=== PATIENT | female | born 1950 | race African-American/Black ===

== ENCOUNTER 2018-02-05 02:21 | Emergency (ER) | payer OTHER ==
[~2018-02-05] VITALS: Ht 162.6 cm; Wt 87.1 kg
[~2018-02-05 02:21] MED LIST: Cipro PO; ENALAPRIL MALEA20 MG; LEVSIN/SL0.125 MG SL; LEVSIN0.125 MG PO; METRONIDAZOLE500 MG PO; PEPCID40 MG PO; PROTONIX40 MG PO; SYNTHROID75 MCG; TRAMADOL HCL-AP1 TAB PO; TRAMADOL HCL50 MG PO; ULTRACET PO; ZANTAC300 MG PO; ZOFRAN4 MG PO
== END 2018-02-05 11:44 ==
LOC: ER 02:21
DX: K57.90 Diverticulosis of intestine, part unspecified, without perforation or abscess without bleeding (principal)

== ENCOUNTER 2018-03-07 21:19 | Emergency (ER) | payer OTHER ==
[~2018-03-07] VITALS: Ht 162.6 cm; Wt 87.1 kg
== END 2018-03-07 23:15 | disposition home or self-care (01) ==
LOC: ER 21:19
DX: K57.90 Diverticulosis of intestine, part unspecified, without perforation or abscess without bleeding (principal); K58.8 Other irritable bowel syndrome

== ENCOUNTER 2018-04-26 07:15 | Inpatient (IN) | payer OTHER ==
[~2018-04-26] VITALS: Ht 162.6 cm; Wt 82.6 kg
[2018-04-26] MEDS ORDERED: ZOCOR20 MG PO (08:46)
[2018-04-26] MEDS ORDERED: OMEGA 3 1,0001 EACH PO (08:47)
[2018-04-26] MEDS ORDERED: FOLIC ACID1 MG PO (08:47)
[2018-04-26] MEDS ORDERED: [UNRECOGNIZED DRUG - OTHER] PO (08:48)
[2018-04-26] MEDS ORDERED: ESSENTIAL DAIL1 EACH PO (08:49)
[2018-04-26] MEDS ORDERED: VIT E PO (08:49)
[2018-04-26] MEDS ORDERED: VIT C-ROSE HIP500 MG PO (08:50)
[2018-04-26] MEDS ORDERED: CALTRATE 600 +1 EACH PO (08:50)
[2018-04-26] MEDS ORDERED: CATAFLAN PO (08:50)
[2018-05-03] MEDS ORDERED: DICLOFENAC POTA50 MG PO (11:39)
[2018-05-05] MEDS ORDERED: CIPRO500 MG PO (17:44)
[2018-05-05] MEDS ORDERED: ELIQUIS2.5 MG PO (17:44)
[2018-05-05] MEDS ORDERED: ULTRACET PO (17:50)
== END 2018-05-05 22:11 | disposition home or self-care (01) | DRG 470 ==
LOC: SURH 05-03 05:55 → O/R 05-03 05:55 → SURH 05-03 07:15
PROVIDERS: Orthopaedic Surgery
PROC: 0MNP0ZZ Release Left Knee Bursa and Ligament, Open Approach (ICD-10-PCS; 2018-05-03)
PROC: 0SRD0J9 Replacement of Left Knee Joint with Synthetic Substitute, Cemented, Open Approach (ICD-10-PCS; principal; 2018-05-03 13:30)
DX: M17.12 Unilateral primary osteoarthritis, left knee (principal); D62 Acute posthemorrhagic anemia; M81.0 Age-related osteoporosis without current pathological fracture; E03.8 Other specified hypothyroidism; I10 Essential (primary) hypertension; K57.30 Diverticulosis of large intestine without perforation or abscess without bleeding; Z88.0 Allergy status to penicillin; Z96.651 Presence of right artificial knee joint

== ENCOUNTER 2018-07-29 03:13 | Emergency (ER) | payer OTHER ==
[~2018-07-29] VITALS: Ht 162.6 cm; Wt 84.4 kg
[~2018-07-29 03:13] MED LIST changes: +CALTRATE 600 +1 EACH PO; +CATAFLAN PO; +CIPRO500 MG PO; +DICLOFENAC POTA50 MG PO; +ELIQUIS2.5 MG PO; +ESSENTIAL DAIL1 EACH PO; +FOLIC ACID1 MG PO; +OMEGA 3 1,0001 EACH PO; +VIT C-ROSE HIP500 MG PO; +VIT E PO; +ZOCOR20 MG PO; +[UNRECOGNIZED DRUG - OTHER] PO
== END 2018-07-29 10:50 | disposition home or self-care (01) ==
LOC: ER 03:13
DX: K57.90 Diverticulosis of intestine, part unspecified, without perforation or abscess without bleeding (principal)

== ENCOUNTER 2018-10-16 00:58 | Emergency (ER) | payer OTHER ==
[~2018-10-16] VITALS: Ht 165.1 cm; Wt 85.3 kg
[2018-10-16] MEDS ORDERED: CIPRO500 MG PO (10:23)
[2018-10-16] MEDS ORDERED: INTESTINEX680 M1 PO (10:23)
[2018-10-16] MEDS ORDERED: FLAGYL500MG PO (10:23)
[2018-10-16] MEDS ORDERED: OMEPRAZOLE40 MG PO (10:23)
== END 2018-10-16 11:22 | disposition home or self-care (01) ==
LOC: ER 00:58
DX: K57.30 Diverticulosis of large intestine without perforation or abscess without bleeding (principal)

== ENCOUNTER 2019-02-05 18:25 | Emergency (ER) | payer OTHER ==
[~2019-02-05] VITALS: Ht 162.6 cm; Wt 82.1 kg
[~2019-02-05 18:25] MED LIST changes: +FLAGYL500MG PO; +INTESTINEX680 M1 PO; +OMEPRAZOLE40 MG PO
[2019-02-05] MEDS ORDERED: FOSAMAX70 MG (19:36)
== END 2019-02-06 00:35 | disposition home or self-care (01) ==
LOC: ER 18:25
DX: N39.0 Urinary tract infection, site not specified (principal); K57.30 Diverticulosis of large intestine without perforation or abscess without bleeding; R10.32 Left lower quadrant pain; R10.12 Left upper quadrant pain

== ENCOUNTER 2021-05-18 09:28 | Emergency (ER) | payer OTHER ==
[~2021-05-18] VITALS: Ht 162.6 cm; Wt 87.1 kg
[~2021-05-18 09:28] MED LIST changes: +FOSAMAX70 MG
== END 2021-05-18 12:59 | disposition home or self-care (01) ==
LOC: ER 09:28
DX: N39.0 Urinary tract infection, site not specified (principal)

== ENCOUNTER 2022-02-26 18:21 | Emergency (ER) | payer OTHER ==
[~2022-02-26] VITALS: Ht 162.6 cm; Wt 87.1 kg
== END 2022-02-26 20:33 | disposition left against medical advice (07) ==
LOC: ER 18:21
DX: Z53.21 Procedure and treatment not carried out due to patient leaving prior to being seen by health care provider (principal)

== ENCOUNTER 2023-06-14 03:35 | Emergency (ER) | payer OTHER ==
[~2023-06-14] VITALS: Ht 162.6 cm; Wt 86.6 kg
[2023-06-14] MEDS ORDERED: ATENOLOL50 MG PO (03:43)
[2023-06-14] MEDS ORDERED: ADULT ASPIRIN R81 MG PO (03:44)
[2023-06-14] MEDS ORDERED: ISOSORBIDE MONO60 MG PO (03:44)
[2023-06-14] MEDS ORDERED: EZALLOR SPRINKL10 MG PO (03:44)
[2023-06-14 06:11] LABS: HEMATOCRIT 39.2 % (36.0-45.00); MEAN CELL VOLUME 85.6 fL (80.00-100.00); MEAN CORPUSCULAR HEMOGLOBIN 28.5 pg (27.00-32.0); MEAN CORPUSCULAR HGB CONC 33.3 g/dl (32.0-36.0); PLATELET COUNT 353 K/uL (150-450); RED BLOOD COUNT 4.57 M/uL (4.00-6.00); RED CELL DISTRIBUTION WIDTH 13.9 % (11.5-14.5)
[2023-06-14 06:18] LABS: INR 1.12; PROTHROMBIN TIME 11.7 SECONDS (9.0-11.5)
[2023-06-14 06:45] LABS: URINE APPEARANCE Clear; URINE BILIRRUBIN Negative (NEGATIVE); URINE BLOOD Negative; URINE COLOR Yellow; URINE GLUCOSE Negative (NEGATIVE); URINE LEUKOCYTE Negative; URINE NITRATE Negative; URINE PROTEIN Negative (NEGATIVE); URINE UROBILINOGEN 0.2 E.U./dl
[2023-06-14 06:49] LABS: URINE BACTERIA 25.1 uL (0.0-1933); URINE EPITHELIAL CELLS 5.3 uL (0.0-38.8); URINE WBC 8.1 uL (0.0-23.2)
[2023-06-14 06:50] LABS: URINE RBC 0.2 uL (0.0-20.8)
[2023-06-14 06:54] LABS: ALBUMIN 3.7 gm/dL (3.4-5.0); BILIRUBIN TOTAL 0.81 mg/dL (0.3-1.2); BILIRUBIN,CONJUGATED 0.22 mg/dL (0.0-0.2); BILIRUBIN,UNCONJUGATED 0.59 mg/dL (0.0-0.6); CALCIUM 9.1 mg/dL (8.5-10.1); CREATININE SERUM 0.99 mg/dL (0.55-1.02); GFR 54.83; GLOBULINA 3.4 G/DL (2.4-3.5); POTASSIUM 4.61 mEq/L (3.5-5.1); TOTAL PROTEIN 7.1 gm/dL (6.4-8.2)
== END 2023-06-14 11:34 | disposition home or self-care (01) ==
LOC: ER 03:35
PROVIDERS: General Practice
DX: K57.90 Diverticulosis of intestine, part unspecified, without perforation or abscess without bleeding (principal); Z88.0 Allergy status to penicillin; Z88.5 Allergy status to narcotic agent
CPT/HCPCS: 36415; 74177; 96365; 96366; 96372; 99284; J1885; J2175; J2550; J7030; Q9965

== ENCOUNTER 2024-04-19 10:46 | Emergency (ER) | payer OTHER ==
[~2024-04-19] VITALS: Ht 162.6 cm; Wt 82.1 kg
[~2024-04-19 10:46] MED LIST changes: +ADULT ASPIRIN R81 MG PO; +ATENOLOL50 MG PO; +EZALLOR SPRINKL10 MG PO; +ISOSORBIDE MONO60 MG PO
[2024-04-19] MEDS ORDERED: SYNTHROID50 MCG PO (11:05)
[2024-04-19] MEDS ORDERED: KETOROLAC TROMETHAMINE 60 MG VIAL IM STA (11:22)
[2024-04-19 11:39] LABS: HEMATOCRIT 39.3 % (36.0-45.00); HEMOGLOBIN 13.2 g/dL (12.0-15.00); MEAN CELL VOLUME 85.9 fL (80.00-100.00); MEAN CORPUSCULAR HEMOGLOBIN 28.9 pg (27.00-32.0); MEAN CORPUSCULAR HGB CONC 33.7 g/dl (32.0-36.0); PLATELET COUNT 373 K/uL (150-450); RED BLOOD COUNT 4.58 M/uL (4.00-6.00); RED CELL DISTRIBUTION WIDTH 15.3 % (11.5-14.5)
[2024-04-19 12:10] LABS: CALCIUM 9.9 mg/dL (8.5-10.1); CREATININE SERUM 0.99 mg/dL (0.55-1.02); GFR 54.68; POTASSIUM 4.41 mEq/L (3.5-5.1)
== END 2024-04-19 15:56 | disposition home or self-care (01) ==
LOC: ER 10:48
PROVIDERS: General Practice
DX: R07.9 Chest pain, unspecified (principal); Z88.8 Allergy status to other drugs, medicaments and biological substances; Z88.0 Allergy status to penicillin; I10 Essential (primary) hypertension; I25.118 Atherosclerotic heart disease of native coronary artery with other forms of angina pectoris
CPT/HCPCS: 36415; 71045; 93005; 96372; 99283; J1885